=== PATIENT | female | born 1980 | race Caucasian/White ===

== ENCOUNTER 2018-10-21 07:34 | Observation (INO) | payer OTHER ==
--- NOTE | 2018-10-20 13:27 | PREOPHP ---
DATE OF ADMISSION: 10/21/2018 HISTORY OF PRESENT ILLNESS: The patient is a 38-year-old female in overall good health who is scheduled to undergo surgery for invasive ductal carcinoma of her right breast. She recently developed a 1 cm mass in the right breast at 9 o'clock in the retroareolar area and core needle biopsy revealed invasive ductal carcinoma which is estrogen and progesterone receptor positive and HER-2 negative. She has been seen by oncology and she is going to undergo right breast partial mastectomy to include the nipple areolar complex and right axillary lymph node biopsy. She initially had a mass in 2016 with a negative MRI, but it subsequently began enlarging. PAST MEDICAL HISTORY: MEDICATIONS: none ALLERGIES: POSSIBLY TO PREDNISONE. PAST SURGICAL HISTORY: Appendectomy 2002, partial colectomy 2014, hemorrhoidectomy and anal fissure surgery. SOCIAL HISTORY: The patient is papa 2, 2. She is having regular menstrual periods. PHYSICAL EXAMINATION: VITAL SIGNS: She is 5 feet 8 inches, 170 pounds. Vital signs within normal limits. HEENT: Within normal limits. LUNGS: Clear. HEART: Regular rhythm. BREASTS; The breasts are moderately large in size. Left breast: Unremarkable. Right breast: Has a 1 cm nodule under the skin of the areola at 9 o'clock. There is no palpable axillary or supraclavicular lymphadenopathy in either side. ABDOMEN: soft PELVIC AND RECTAL: per primary care physician EXTREMITIES: no edema NEUROLOGIC: physiologic ASSESSMENT AND PLAN: Invasive ductal carcinoma, right breast. Full discussion has been had with the patient regarding her options. Her oncologist has ordered genetic testing, but it has not been completed but she wants to proceed with surgery without that information at this time, even if additional surgery is required later. I have discussed the nature of the procedure of right partial mastectomy to include the nipple areolar complex and right axillary lymph node biopsy including indications, alternatives, options and risks which include bleeding, infection, injury to adjacent structures or organs, neuralgia, neuritis, need for additional procedures based on final pathology of both the breast and axilla, scarring, distortion of the breast, etc. All questions have been answered. She understands and agrees to proceed. Dictated By: NAYANA RUTLEDGE/GLADIS Conf#: [id number] DID#: [id number] [facility]
[~2018-10-21] VITALS: Ht 172.7 cm; Wt 78.6 kg
[2018-10-21] VITALS (27 sets, daily range): BP systolic 81–182; BP diastolic 52–75; PULSE 60–78; RESP 10–20; Ht 172.7 cm; Wt 78.6 kg
[~2018-10-21 07:34] MED LIST: CEFAZOLIN 2 GM/50 ML (PMX) 50 ML IVPB ONE; SOD CHLORIDE 0.9% 1,000 ML IV SCH
--- NOTE | 2018-10-21 10:10 | HPN ---
Date/Time of Note Date/Time of Note DATE: 10/21/18 TIME: 10:10 Interval H&P Admission Note Pt. seen H&P reviewed: No system changes NAYANA GILLIS Oct 21, 2018 10:10
--- NOTE | 2018-10-21 10:15 | PREAC ---
Date/Time of Note Date/Time of Note DATE: 10/21/18 TIME: 10:13 Anesthesia Eval and Record Evaluation Time Pre-Procedure Interview DATE: 10/21/18 TIME: 10:13 Age 38 Sex female NPO: 8 hrs Preoperative diagnosis right breast cancer Planned procedure RIGHT BREAST PARTIAL MASTECTOMY AND RIGHT AXILLARY LYMPH NIODE BIOPSY Past Medical History Past Medical History: Includes Pulm: Smoking Hx Surgery & Anesthesia Issues No known issue Meds Anticoagulation: No Beta Ines within 24 hr: No Reason Beta Ines not given: Pt. not on B-Ines No Active Prescriptions or Reported Meds Current Medications Sodium Chloride 1,000 ml @ 75 mls/hr [id number] IV ; Start 10/21/18 at 06:00; Stop 10/21/18 at 19:19 Meds reviewed: Yes Allergies Coded Allergies: prednisone (Verified Allergy, Unknown, RASH, 10/21/18) Allergies Reviewed: Yes Labs/Studies Labs Reviewed: Reviewed by anesthesiologist Result Diagram: 10/21/18 0856 10/21/18 0856 Laboratory Tests 10/21/18 08:56 test: Negative Pre-procedure Exam Last vitals Vital Signs Date Temp Pulse Resp B/P (MAP) Pulse Ox O2 O2 Flow FiO2 Time Delivery Rate 10/21/18 98.0 63 18 94/55 (68) 98 Room Air 09:15 Airway: Adequate mouth opening, Adequate thyromental dist Mallampati: Mallampati II Teeth: Normal Lung: Normal Heart: Normal ASA Physical Status ASA physical status: 2 Emergency: None Planned Anesthetic General/MAC: ETT Planned Pain Management Parenteral pain med, Local by surgeon Pre-operative Attestations Prior to commencing anesthesia and surgery, the patient was re-evaluated, there was verification of: *The patient's identity *The results of appropriate recent lab work and preoperative vital signs *The above evaluation not changing prior to induction *Anesthetic plan, risk benefits, alternative and complications discussed with patient/family; questions answered; patient/family understands, accepts and wishes to proceed. Eladio Colmenares M.D. Oct 21, 2018 10:15
[2018-10-21] MEDS ORDERED: ONDANSETRON 4 MG INJ ONE (10:19)
[2018-10-21] MEDS ORDERED: NEOSTIGMINE 3 MG/3 ML SYRINGE ONE (10:19)
[2018-10-21] MEDS ORDERED: CEFAZOLIN 1 GM INJ ONE (10:19)
[2018-10-21] MEDS ORDERED: FENTAnyl 50 MCG/ML VIAL ONE ×2 (10:19→10:50)
[2018-10-21] MEDS ORDERED: MIDAZOLAM 1 MG/ML 2 ML INJ ONE (10:19)
[2018-10-21] MEDS ORDERED: ROCURONIUM 50 MG INJ ONE (10:19)
[2018-10-21] MEDS ORDERED: GLYCOPYRROLATE 0.4 MG INJ ONE (10:19)
[2018-10-21] MEDS ORDERED: PROPOFOL 20 ML ONE (10:19)
[2018-10-21] MEDS ORDERED: ISOSULFAN BLUE 1% 5 ML INJ SC ONE (10:20)
[2018-10-21] MEDS ORDERED: MIDAZOLAM 1 MG/ML 2 ML INJ IV PRN (10:30)
[2018-10-21] MEDS ORDERED: ALBUTEROL 0.083% (NEB) 2.5 MG/3 ML AMP HHN PRN (10:30)
[2018-10-21] MEDS ORDERED: OXYCODONE/ACETAMINOPHEN (5/325) TAB PO PRN ×2 (10:30)
[2018-10-21] MEDS ORDERED: EPHEDrine SULFATE 50 MG/5 ML SYG IV PRN (10:30)
[2018-10-21] MEDS ORDERED: DIPHENHYDRAMINE 50 MG INJ IV PRN (10:30)
[2018-10-21] MEDS ORDERED: IPRATROPIUM (NEB) 0.5 MG/2.5 ML AMP HHN PRN (10:30)
[2018-10-21] MEDS ORDERED: FENTAnyl 50 MCG/ML VIAL IV PRN ×3 (10:30)
[2018-10-21] MEDS ORDERED: HYDROmorphONE 1 MG/5 ML IV SYRINGE IV PRN ×3 (10:30)
[2018-10-21] MEDS ORDERED: TRIMETHOBENZAMIDE 100 MG/ML VIAL IM PRN (10:30)
[2018-10-21] MEDS ORDERED: ONDANSETRON 4 MG INJ IV PRN ×2 (10:30→12:30)
[2018-10-21] MEDS ORDERED: hydrALAzine 20 MG INJ IV PRN (10:30)
[2018-10-21] MEDS ORDERED: MEPERIDINE 25 MG INJ IV PRN (10:30)
[2018-10-21] MEDS ORDERED: LABETALOL HCL 20MG INJ IV PRN (10:30)
--- NOTE | 2018-10-21 12:09 | SIPON ---
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
[2018-10-21] MEDS ORDERED: ACETAMINOPHEN 325 MG TAB PO PRN (12:30)
--- NOTE | 2018-10-21 12:46 | PAC ---
Date/Time of Note Date/Time of Note DATE: 10/21/18 TIME: 12:45 Post-Anesthesia Notes Post-Anesthesia Note Last documented vital signs Vital Signs Date Temp Pulse Resp B/P (MAP) Pulse Ox O2 O2 Flow FiO2 Time Delivery Rate 10/21/18 98.0 63 18 94/55 (68) 98 Room Air 12:45 Activity: WNL Respiratory function: WNL Cardiovascular function: WNL Mental status: Baseline Pain reasonably controlled: Yes Hydration appropriate: Yes Nausea/Vomiting absent: Yes Eladio Colmenares M.D. Oct 21, 2018 12:46
--- NOTE | 2018-10-21 13:05 | NUR ---
PACU NOTES: PATIENT AWAKE AND ALERT. ON 2 L NC 99% S/P RIGHT BREAST PARTIAL MASTECTOMY RIGHT AXILLARY NODE BIOPSY W/ BRESSING STERI STRIP TELFA DRESSING 4X4 AND TAPE PLACED JOBST BRA FROM O.R. W/ COMPLAIN OF PAIN MEDICATED WITH FENTANYL IV AND ZOFRAN FOR NAUSEA. ABLE TO DO INCENTIVE SPIROMETER UP TO 1500 ML X 5, WITH MIKAYLA DRAIN NO OUTPUT NO BLEEDING ON THE RIGHT BREAST. ABLE TO REPOSITION IN BED. FAMILY NOTIFIED OF TRANSFER TO MED SURG. Addendum: 10/21/18 at 1353 by YUN LOZA RN justen lau aware of transfer to room [facility]
--- NOTE | 2018-10-21 13:15 | NUR ---
NURSING NOTE: PATIENT ARRIVED ON UNIT INTOR ROOM 410B. REPORT GIVEN BY YUN KWON IN PACU. PATIENT ALERT AND ORIENTATED, SLEEPY. VSS. SURGICAL SITE COVERED WITH SUPPORT BRA, X1 MIKAYLA. BED ALARM ACTIVATED. WILL CONTINUE TO MONITOR.
[2018-10-21] MEDS: D5W-0.45 NACL + KCL 20 MEQ 1,000 ML IV SCH ×3 (14:08→23:41)
[2018-10-21] MEDS: HYDROmorphONE 1 MG/ML SYG SC PRN ×2 (14:37→19:05)
--- NOTE | 2018-10-21 14:55 | OPR ---
DATE OF OPERATION: 10/21/2018 SURGEON: Nayana Mcclain MD SALES REPRESENTATIVE LIVESTOCK: Esther Bullard MD ANESTHESIOLOGIST: Eladio Colmenares MD TYPE OF ANESTHESIA: General. PREOPERATIVE DIAGNOSIS: Invasive ductal carcinoma, right breast. POSTOPERATIVE DIAGNOSIS: Invasive ductal carcinoma, right breast. OPERATION PERFORMED: Right breast partial mastectomy including nipple areola complex and right axillary lymph node biopsy. INDICATIONS: The patient has a 1 cm nodule medially under the areolar skin at 9 o'clock just lateral to the nipple with core biopsy revealing invasive ductal carcinoma. DESCRIPTION OF PROCEDURE: The patient was taken to the operating room and before prepping and draping under general anesthesia with sequential compression device stockings in place, I injected 3 mL of 1% Lymphazurin at 10 o'clock subareolar and the patient was prepped and draped in the usual fashion. A transverse axillary incision was made and the clavipectoral fascia was incised achieving hemostasis with cautery. Several lymph nodes were readily identified including a stained lymph node. These were all resected using the LigaSure device and given to pathology who found 9 lymph glands, all of which appeared benign. Through a separate stab incision, a 19 mm round Logan-Delcid drain was placed into the axilla and sutured to the skin with a 2-0 nylon suture. After ascertaining that hemostasis was secure, the incision was closed with interrupted 2-0 and 3-0 Vicryl and the skin was closed with 4-0 Monocryl subcuticular suture. Mastisol and 1/2-inch Steri-Strips were applied. Then attention was directed to the breast. A transversely oriented incision was made in elliptical fashion excising the nipple areola complex. The breast tissue was excised with cautery. The specimen was oriented for the pathologist. The deep margin appeared very clear. The field was irrigated with sterile water. Hemostasis was secured with cautery. The incision was closed with interrupted 2-0 and 3-0 Vicryl and the skin was closed with jaylene. Dry sterile dressings were applied. Final sponge and needle counts were correct. The patient tolerated the procedure well and left the operating room in good condition. Dictated By: NAYANA RUTLEDGE/GLADIS Conf#: [id number] DID#: [id number] [facility]
--- NOTE | 2018-10-21 18:25 | NUR ---
END OF SHIFT: PATIENT RESTING IN BED. SURGICAL SITE INTACT, WITH X1 MIKAYLA DRAIN, WITH SUPPORT BRA. PATIENT VOIDED IN BATHROOM A BLUE URINE. PATIENT GIVEN PAIN MEDICATIONS X1. VSS DURING SHIFT, SLIGHTLY HYPOTENSIVE, PATIENT STATES THATS HER NORM. HOURLY ROUNDING DONE DURING SHIFT, CALL MUJICA WITHIN REACH, FALL PRECAUTIONS OBSERVED, WILL ENDORSE TO NIGHT RN.
[2018-10-22 01:00] VITALS: BP 90/50
[2018-10-22] MEDS: HYDROCODONE/APAP (5/325) TAB PO PRN ×2 (02:12→09:32)
[2018-10-22 05:12] VITALS: BP 93/56; PULSE 66; RESP 19
--- NOTE | 2018-10-22 06:18 | NUR ---
EOSS: PATIENT BEEN ASSESSED FOR PAIN. PATIENT WAS MEDICATED WITH NORCO 1 TAB PO ONCE DURING THE SHIFT. PATIENT'S BP BEEN ON THE LOW SIDE AND PATIENT REPORTED THAT IT'S HER USUAL RANGE. PATIENT'S DSG REMAIN CDI. MIKAYLA DRAIN BEEN EMPTIED. PATINT CONTINUE TO RECEIVED IVF. PATIENT VOIDS TO TOILET FREELY. HOURLY ROUNDING RENDING. CALL LIGHT WITHIN REACH. FALL PRECAUTION INITIATED.
[2018-10-22 07:45] VITALS: BP 92/55; RESP 18
--- NOTE | 2018-10-22 10:04 | PN ---
Date/Time of Note Date/Time of Note DATE: 10/22/18 TIME: 10:01 Assessment/Plan Lines/Catheters IV Catheter Type (from Nrsg): Peripheral IV Pabon in Place (from Nrsg): No Subjective 24 Hr Interval Summary Additional Comments AVSS Comfortable with [place]. Right breast and axilla incisions are clean and dry. MIKAYLA drain 20cc serous since surgery Imp. doing well Plan: Discharge Rx [place] 5/325 #24 f/u office at [facility] 2018 at 11am Instructions/limitations discussed Exam/Review of Systems Vital Signs Vitals Vital Signs Date Temp Pulse Resp B/P (MAP) Pulse Ox O2 O2 Flow FiO2 Time Delivery Rate 10/22/18 98.4 18 92/55 (67) 100 Room Air 07:45 10/22/18 66 05:12 10/21/18 2.0 12:55 Intake and Output 10/21/18 10/21/18 10/22/18 1515:00 23:00 07:00 IntakeIntake Total 1300 ml 905 ml 1550 ml OutputOutput Total 70 ml 10 ml BalanceBalance 1230 ml 905 ml 1540 ml Results Result Diagram: 10/21/18 0856 10/21/18 0856 NAYANA GILLIS Oct 22, 2018 10:04
--- NOTE | 2018-10-22 12:40 | NUR ---
Nurse Note: Patient alert and oriented X4, discharge instructions and prescription given to patient, she verbalized understanding, hep lock removed and intact, no signs of distress, noted, surgical dressing changed earlier today by Dr. Mcclain, no signs and symptoms of infection. Antonieta TRIPLETT RN Addendum: 10/22/18 at 1340 by AMALIA SALAZAR RN MIKAYLA education given to patient and mother at bedside, both verbalized understanding. Antonieta TRIPLETT, RN
== END 2018-10-22 13:05 | disposition home or self-care (01) ==
LOC: SDS 07:34 → INTOOBSV 12:15 → SDS 12:15 → REC 12:15 → MS1 13:59
PROVIDERS: ADMIT Surgery; ATTEND Surgery
DX: C50.911 Malignant neoplasm of unspecified site of right female breast (principal)
CPT/HCPCS: 19301; 38500; 80053; 81001; 85025; 85610; 85730; 88307; J0690; J1170; J2250; J2405; J2710; J3010; J3480; Z7500; Z7512; Z7610; G0378; Q9968